=== PATIENT | female | born 1990 | race Caucasian/White ===

== ENCOUNTER 2016-09-29 09:09 | Emergency (ER) | payer OTHER ==
[~2016-09-29] VITALS: Ht 172.7 cm; Wt 136.4 kg
[~2016-09-29 09:09] MED LIST: AMOXICILLIN 50500 MG PO; AMOXICILLIN875 MG PO; BIRTH CONTROL; IMURAN 50MG TAB50 MG PO; IMURAN50 MG PO; LEVAQUIN 5500 MG/TA1 PO; LEVBID0.375 MG PO; LO/OVRAL-21 301 TAB PO; NORCO 325 MG-51 TAB PO; PENTASA; PEPCID 20MG TAB20 MG PO; PHENERGAN 25 TA25 MG PO; PHENERGAN W/CO120 ML PO; PHENERGAN25 MG RC; PREDNISONE 5MG5 MG PO; PRILOSEC 20MG20 MG PO; REMICADE V100 MG/VIA IV; TESSALON PERLE200 MG PO; ULTRAM 50MG TAB50 MG PO; ULTRAM50 MG PO; ZOFRAN 4MG T4 MG/TAB PO
[2016-09-29 09:16] VITALS: BP 143/107; TEMP 98
[2016-09-29 12:41] LABS: PH 5 (5-8); SQUAMOUS EPITHELIAL 0-2 /hpf; URINE APPEARANCE Clear; URINE BACTERIA Rare /hpf; URINE BILIRUBIN Negative (NEGATIVE); URINE BLOOD Negative (NEGATIVE); URINE COLOR Yellow; URINE GLUCOSE Negative (NEGATIVE); URINE KETONE Negative (NEGATIVE); URINE RBC 0-2 /hpf; URINE UROBILINOGEN Negative (NEGATIVE); URINE WBC 0-2 /hpf
[2016-09-29] MEDS ORDERED: VALIUM 5MG T5 MG/TAB PO (13:34)
[2016-09-29] MEDS ORDERED: PERCOCET 325 MG1 TA2 PO (13:34)
[2016-09-29 13:45] VITALS: PULSE 101
== END 2016-09-29 13:45 | disposition home or self-care (01) ==
LOC: COL.ER 09:09
PROVIDERS: Nurse Practitioner
DX: M54.5 Low back pain (principal)
CPT/HCPCS: J1170; J1885; J2270; J2360

== ENCOUNTER 2016-10-04 06:27 | Day surgery (SDC) | payer OTHER ==
[~2016-10-04] VITALS: Ht 172.7 cm; Wt 169.5 kg
[~2016-10-04 06:27] MED LIST changes: +PERCOCET 325 MG1 TA2 PO; +VALIUM 5MG T5 MG/TAB PO
[2016-10-04 07:07] VITALS: BP 149/98; PULSE 93; TEMP 99.3
[2016-10-04] MEDS ORDERED: PRILOSEC 20MG20 MG PO (07:35)
[2016-10-04 08:55] VITALS: BP 141/86; PULSE 85; TEMP 98.2
[2016-10-04 09:10] VITALS: BP 142/98; PULSE 88
[2016-10-04 09:25] VITALS: BP 131/88; PULSE 78
[2016-10-04 12:28] VITALS: BP 145/96; PULSE 89
== END 2016-10-04 10:00 | disposition home or self-care (01) ==
LOC: SDCO 06:27
DX: K50.10 Crohn's disease of large intestine without complications (principal); K64.0 First degree hemorrhoids; K52.9 Noninfective gastroenteritis and colitis, unspecified; K29.50 Unspecified chronic gastritis without bleeding; R11.2 Nausea with vomiting, unspecified; Z79.899 Other long term (current) drug therapy
CPT/HCPCS: OP; J2250; J2704; J7030

== ENCOUNTER → 2016-10-08 | Outpatient (CLI) | payer OTHER ==
[~2016-10-08] MED LIST changes: +CYMBALTA 30MG30 MG PO
== END ==
LOC: COL.RAD 06:16
DX: K50.90 Crohn's disease, unspecified, without complications (principal)
CPT/HCPCS: Q9967

== ENCOUNTER 2016-10-18 10:00 | Outpatient (CLI) | payer OTHER ==
[~2016-10-18] VITALS: Ht 172.7 cm; Wt 166.9 kg
[~2016-10-18 10:00] MED LIST changes: -CYMBALTA 30MG30 MG PO
[2016-10-18 10:16] LABS: BASO % 0.6 % (0.0-2.0); EOS # 0.1 (0.0-0.7); GRAN # 3.4 (1.4-6.5); GRAN % 68.1 % (42.2-75.2); HEMOGLOBIN 13.5 g/dl (12.5-16.0); LYMPH # 1.2 (1.2-3.4); LYMPH % 24.7 % (20.0-51.0); MEAN CELL VOLUME 86 fl (80.0-100.0); MEAN CORPUSCULAR HEMOGLOBIN 29 pg (27.0-31.0); MEAN CORPUSCULAR HGB CONC 34 g/dl (33.0-37.0); MEAN PLATELET VOLUME 9.2 fl (7.4-10.4); MONO # 0.3 (0.1-0.6); MONO % 5.4 % (1.7-9.3); PLATELET COUNT 274 K/mm3 (130-400); RED BLOOD COUNT 4.63 M/mm3 (4.10-5.30); REDCELL DISTRIBUTION WIDTH-CV 13.1 % (11.5-14.5)
[2016-10-18 11:05] VITALS: BP 130/84; PULSE 85; TEMP 98.1
[2016-10-18 11:35] VITALS: BP 117/76; PULSE 87; TEMP 98.1
[2016-10-18 12:05] VITALS: BP 124/78; PULSE 79; TEMP 98.5
[2016-10-18 12:35] VITALS: BP 111/73; PULSE 92; TEMP 98.6
[2016-10-18 13:05] VITALS: BP 111/73; PULSE 90; TEMP 98.6
== END 2016-10-18 13:20 | disposition home or self-care (01) ==
LOC: EUO 10:00
PROVIDERS: Internal Medicine Gastroenterology
DX: K50.00 Crohn's disease of small intestine without complications (principal)
CPT/HCPCS: J1200; J1745; J7050

== ENCOUNTER → 2016-11-29 | Outpatient (CLI) | payer OTHER ==
[~2016-11-29] MED LIST changes: +CYMBALTA 30MG30 MG PO
== END ==
LOC: COL.LAB 14:20
DX: K50.90 Crohn's disease, unspecified, without complications (principal); M79.671 Pain in right foot

== ENCOUNTER 2016-12-13 10:10 | Outpatient (CLI) | payer OTHER ==
[~2016-12-13] VITALS: Ht 172.7 cm; Wt 167.7 kg
[~2016-12-13 10:10] MED LIST changes: -CYMBALTA 30MG30 MG PO
[2016-12-13 10:31] VITALS: BP 134/75; PULSE 97; TEMP 98.3
[2016-12-13 10:58] LABS: HEMATOCRIT 36.2 % (37.0-47.0); HEMOGLOBIN 12.1 g/dl (12.5-16.0); MEAN CELL VOLUME 85 fl (80.0-100.0); MEAN CORPUSCULAR HEMOGLOBIN 29 pg (27.0-31.0); MEAN CORPUSCULAR HGB CONC 33 g/dl (33.0-37.0); MEAN PLATELET VOLUME 10.7 fl (7.4-10.4); PLATELET COUNT 87 K/mm3 (130-400); RED BLOOD COUNT 4.25 M/mm3 (4.10-5.30); REDCELL DISTRIBUTION WIDTH-CV 12.4 % (11.5-14.5); WHITE BLOOD COUNT 5.1 K/mm3 (4.8-10.8)
[2016-12-13 12:15] VITALS: BP 109/67; PULSE 85; TEMP 98.6
[2016-12-13 12:45] VITALS: BP 112/67; PULSE 82; TEMP 98.4
[2016-12-13 13:15] VITALS: BP 104/72; PULSE 87; TEMP 99
[2016-12-13 13:52] VITALS: BP 110/72; PULSE 85; TEMP 97.9
[2016-12-13 14:15] VITALS: BP 106/75; PULSE 89; TEMP 98.2
== END 2016-12-13 14:30 | disposition home or self-care (01) ==
LOC: EUO 10:10
PROVIDERS: Internal Medicine Gastroenterology
DX: K50.00 Crohn's disease of small intestine without complications (principal)
CPT/HCPCS: J1200; J1745; J7050

== ENCOUNTER → 2017-01-13 | Outpatient (CLI) | payer OTHER ==
[~2017-01-13] MED LIST changes: +CYMBALTA 30MG30 MG PO
[2017-01-13 12:39] LABS: ALBUMIN 3.9 gm/dL (3.5-5.0); BILIRUBIN,TOTAL 0.9 mg/dL (0.0-1.0); C-REACTIVE PROTEIN 2.2 mg/dL (0.0-0.9); CALCIUM 8.9 mg/dL (8.4-10.2); CREATININE, serum 0.7 mg/dL (0.52-1.25); POTASSIUM 3.8 mmol/L (3.4-5.0); TOTAL PROTEIN 7.8 gm/dL (6.4-8.2)
[2017-01-13 12:45] LABS: BASO % 0.6 % (0.0-2.0); EOS # 0.1 (0.0-0.7); EOS % 0.9 % (0-4.0); GRAN # 3.2 (1.4-6.5); GRAN % 58.1 % (42.2-75.2); HEMATOCRIT 39.7 % (37.0-47.0); LYMPH # 1.9 (1.2-3.4); LYMPH % 35.4 % (20.0-51.0); MEAN CELL VOLUME 86 fl (80.0-100.0); MEAN CORPUSCULAR HEMOGLOBIN 28 pg (27.0-31.0); MEAN CORPUSCULAR HGB CONC 33 g/dl (33.0-37.0); MEAN PLATELET VOLUME 9.4 fl (7.4-10.4); MONO # 0.3 (0.1-0.6); MONO % 4.8 % (1.7-9.3); PLATELET COUNT 228 K/mm3 (130-400); WHITE BLOOD COUNT 5.4 K/mm3 (4.8-10.8)
[2017-01-13 13:06] LABS: THYROID STIMULATING HORMONE 2.25 uIU/mL (0.465-4.680)
[2017-01-13 13:18] LABS: ERYTHROCYTE SEDIMENTATION RATE 24 mm/hr (0-20)
== END ==
LOC: COL.LAB 11:55
PROVIDERS: Physician Assistant Medical
DX: M25.50 Pain in unspecified joint (principal)

== ENCOUNTER → 2017-01-24 | Outpatient (CLI) | payer OTHER | LOC: COL.LAB 15:05 | PROVIDERS: Internal Medicine Gastroenterology | DX: K50.00 Crohn's disease of small intestine without complications (principal) ==

== ENCOUNTER → 2017-02-07 | Outpatient (CLI) | payer OTHER ==
[~2017-02-07] VITALS: Ht 172.7 cm; Wt 170.4 kg
[2017-02-07 14:43] LABS: HEMOGLOBIN 12.2 g/dl (12.5-16.0); MEAN CELL VOLUME 84 fl (80.0-100.0); MEAN CORPUSCULAR HEMOGLOBIN 28 pg (27.0-31.0); MEAN CORPUSCULAR HGB CONC 33 g/dl (33.0-37.0); MEAN PLATELET VOLUME 9.3 fl (7.4-10.4); PLATELET COUNT 299 K/mm3 (130-400); REDCELL DISTRIBUTION WIDTH-CV 12.8 % (11.5-14.5); WHITE BLOOD COUNT 5.3 K/mm3 (4.8-10.8)
[2017-02-07 14:44] LABS: HEMATOCRIT 36.8 % (37.0-47.0)
[2017-02-07 14:52] LABS: ALBUMIN 3.7 gm/dL (3.5-5.0); TOTAL PROTEIN 7.5 gm/dL (6.4-8.2)
[2017-02-07 15:24] LABS: BILIRUBIN,DIRECT 0.6 mg/dL (0.0-0.4); BILIRUBIN,TOTAL 0.6 mg/dL (0.0-1.0)
[2017-02-07 15:33] VITALS: BP 140/85; PULSE 95; TEMP 98.1
[2017-02-07 16:00] VITALS: BP 138/71; PULSE 93; TEMP 98.1
[2017-02-07 16:30] VITALS: BP 137/75; PULSE 90; TEMP 98.3
[2017-02-07 17:00] VITALS: BP 137/70; PULSE 90; TEMP 98.3
[2017-02-07 17:30] VITALS: BP 127/89; PULSE 85; TEMP 98.3
== END ==
LOC: EUO 14:00
PROVIDERS: Internal Medicine Gastroenterology
DX: K50.00 Crohn's disease of small intestine without complications (principal)
CPT/HCPCS: J1200; J1745; J7050

== ENCOUNTER 2017-04-12 15:00 | Outpatient (CLI) | payer OTHER ==
[~2017-04-12] VITALS: Wt 171.1 kg
[~2017-04-12 15:00] MED LIST changes: -CYMBALTA 30MG30 MG PO
[2017-04-12 15:36] LABS: BASO % 0.6 % (0.0-2.0); EOS # 0.1 (0.0-0.7); EOS % 2.1 % (0-4.0); GRAN # 3.7 (1.4-6.5); GRAN % 56.8 % (42.2-75.2); HEMATOCRIT 38.2 % (37.0-47.0); HEMOGLOBIN 12.6 g/dl (12.5-16.0); LYMPH # 2.2 (1.2-3.4); LYMPH % 33.4 % (20.0-51.0); MEAN CELL VOLUME 83 fl (80.0-100.0); MEAN CORPUSCULAR HEMOGLOBIN 27 pg (27.0-31.0); MEAN CORPUSCULAR HGB CONC 33 g/dl (33.0-37.0); MEAN PLATELET VOLUME 9.3 fl (7.4-10.4); MONO # 0.5 (0.1-0.6); MONO % 6.9 % (1.7-9.3); PLATELET COUNT 289 K/mm3 (130-400); REDCELL DISTRIBUTION WIDTH-CV 13.2 % (11.5-14.5); WHITE BLOOD COUNT 6.6 K/mm3 (4.8-10.8)
[2017-04-12 15:51] LABS: ALBUMIN 3.6 gm/dL (3.5-5.0); BILIRUBIN,DIRECT 0.3 mg/dL (0.0-0.4); BILIRUBIN,TOTAL 0.5 mg/dL (0.0-1.0); TOTAL PROTEIN 7.3 gm/dL (6.4-8.2)
[2017-04-12] MEDS ORDERED: CYMBALTA 30MG30 MG PO (16:04)
[2017-04-12 16:20] VITALS: BP 138/86; PULSE 94; TEMP 97.9
[2017-04-12 16:50] VITALS: BP 125/73; PULSE 78; TEMP 98
[2017-04-12 17:20] VITALS: BP 124/63; PULSE 75; TEMP 98
[2017-04-12 17:50] VITALS: BP 124/67; PULSE 83; TEMP 98
[2017-04-12 18:18] VITALS: BP 118/69; PULSE 86; TEMP 98.2
== END 2017-04-15 09:23 | disposition home or self-care (01) ==
LOC: EUO 15:00
PROVIDERS: Internal Medicine Gastroenterology
DX: K50.00 Crohn's disease of small intestine without complications (principal); Z79.899 Other long term (current) drug therapy
CPT/HCPCS: J1200; J1745; J7050; Q5102-ZB

== ENCOUNTER 2017-06-06 14:30 | Outpatient (CLI) | payer OTHER ==
[~2017-06-06] VITALS: Ht 172.7 cm; Wt 171.0 kg
[~2017-06-06 14:30] MED LIST changes: +CYMBALTA 30MG30 MG PO
[2017-06-06 14:59] LABS: HEMATOCRIT 39.5 % (37.0-47.0); HEMOGLOBIN 13.2 g/dl (12.5-16.0); MEAN CELL VOLUME 83 fl (80.0-100.0); MEAN CORPUSCULAR HEMOGLOBIN 28 pg (27.0-31.0); MEAN CORPUSCULAR HGB CONC 33 g/dl (33.0-37.0); MEAN PLATELET VOLUME 9.4 fl (7.4-10.4); PLATELET COUNT 299 K/mm3 (130-400); RED BLOOD COUNT 4.78 M/mm3 (4.10-5.30); REDCELL DISTRIBUTION WIDTH-CV 13.2 % (11.5-14.5); WHITE BLOOD COUNT 7.4 K/mm3 (4.8-10.8)
[2017-06-06 15:10] LABS: ALBUMIN 3.9 gm/dL (3.5-5.0); BILIRUBIN,TOTAL 0.4 mg/dL (0.0-1.0); TOTAL PROTEIN 7.6 gm/dL (6.4-8.2)
[2017-06-06 15:18] LABS: BILIRUBIN,DIRECT 0.3 mg/dL (0.0-0.4)
[2017-06-06 15:45] VITALS: BP 128/73; PULSE 95; TEMP 98.3
[2017-06-06 16:15] VITALS: BP 137/84; PULSE 100; TEMP 98.3
[2017-06-06 16:45] VITALS: BP 124/70; PULSE 88; TEMP 97.9
[2017-06-06 17:15] VITALS: BP 130/69; PULSE 98; TEMP 98.6
[2017-06-06 17:58] VITALS: BP 138/65; PULSE 96; TEMP 98
== END 2017-06-06 18:00 | disposition home or self-care (01) ==
LOC: EUO 14:30
PROVIDERS: Internal Medicine Gastroenterology
DX: K50.90 Crohn's disease, unspecified, without complications (principal); Z79.899 Other long term (current) drug therapy
CPT/HCPCS: J1200; J7050; Q5102-ZB

== ENCOUNTER 2017-08-01 13:12 | Outpatient (CLI) | payer OTHER ==
[~2017-08-01] VITALS: Ht 172.7 cm; Wt 178.9 kg
[2017-08-01 13:47] LABS: HEMATOCRIT 42.9 % (37.0-47.0); HEMOGLOBIN 14.1 g/dl (12.5-16.0); MEAN CELL VOLUME 84 fl (80.0-100.0); MEAN CORPUSCULAR HEMOGLOBIN 28 pg (27.0-31.0); MEAN CORPUSCULAR HGB CONC 33 g/dl (33.0-37.0); MEAN PLATELET VOLUME 9.2 fl (7.4-10.4); PLATELET COUNT 308 K/mm3 (130-400); RED BLOOD COUNT 5.11 M/mm3 (4.10-5.30); WHITE BLOOD COUNT 7.5 K/mm3 (4.8-10.8)
[2017-08-01 14:45] VITALS: BP 153/93; PULSE 100; TEMP 99
[2017-08-01 15:15] VITALS: BP 149/84; PULSE 96
[2017-08-01 15:45] VITALS: BP 152/86; PULSE 92; TEMP 98.5
[2017-08-01 16:21] VITALS: BP 132/87; PULSE 95; TEMP 98.4
[2017-08-01 16:51] VITALS: BP 142/79; PULSE 93; TEMP 98.4
== END 2017-08-01 16:52 | disposition home or self-care (01) ==
LOC: EUO 13:12
PROVIDERS: Internal Medicine Gastroenterology
DX: K50.00 Crohn's disease of small intestine without complications (principal); Z79.899 Other long term (current) drug therapy
CPT/HCPCS: J1200; J7050; Q5102-ZB

== ENCOUNTER 2017-09-27 14:20 | Outpatient (CLI) | payer OTHER ==
[~2017-09-27] VITALS: Ht 172.7 cm; Wt 181.0 kg
[2017-09-27 14:47] LABS: HEMATOCRIT 40.8 % (37.0-47.0); HEMOGLOBIN 13.6 g/dl (12.5-16.0); MEAN CELL VOLUME 83 fl (80.0-100.0); MEAN CORPUSCULAR HEMOGLOBIN 28 pg (27.0-31.0); MEAN CORPUSCULAR HGB CONC 33 g/dl (33.0-37.0); MEAN PLATELET VOLUME 9.1 fl (7.4-10.4); PLATELET COUNT 337 K/mm3 (130-400); RED BLOOD COUNT 4.89 M/mm3 (4.10-5.30)
[2017-09-27 15:04] LABS: BILIRUBIN UNCONJUGATED 0.1 mg/dL (0.0-1.1); BILIRUBIN,DIRECT 0.2 mg/dL (0.0-0.4); BILIRUBIN,TOTAL 0.2 mg/dL (0.0-1.0); TOTAL PROTEIN 7.9 gm/dL (6.4-8.2)
[2017-09-27 16:00] VITALS: BP 138/97; PULSE 94; TEMP 98.2
[2017-09-27 16:30] VITALS: BP 122/81; PULSE 91; TEMP 98.1
[2017-09-27 17:10] VITALS: BP 137/86; PULSE 88; TEMP 98.3
[2017-09-27 17:46] VITALS: BP 119/60; PULSE 88; TEMP 98.4
== END 2017-09-28 14:07 | disposition home or self-care (01) ==
LOC: EUO 14:20
PROVIDERS: Internal Medicine Gastroenterology
DX: K50.00 Crohn's disease of small intestine without complications (principal); Z79.899 Other long term (current) drug therapy
CPT/HCPCS: J1200; J7050; Q5102-ZB

== ENCOUNTER 2018-01-10 09:44 | Outpatient (CLI) | payer OTHER ==
[~2018-01-10] VITALS: Ht 172.7 cm; Wt 181.0 kg
[2018-01-10 10:24] LABS: HEMATOCRIT 41.7 % (37.0-47.0); HEMOGLOBIN 13.9 g/dl (12.5-16.0); MEAN CELL VOLUME 82 fl (80.0-100.0); MEAN CORPUSCULAR HEMOGLOBIN 27 pg (27.0-31.0); MEAN CORPUSCULAR HGB CONC 33 g/dl (33.0-37.0); MEAN PLATELET VOLUME 9.2 fl (7.4-10.4); PLATELET COUNT 326 K/mm3 (130-400); RED BLOOD COUNT 5.08 M/mm3 (4.10-5.30); REDCELL DISTRIBUTION WIDTH-CV 13.1 % (11.5-14.5)
[2018-01-10 12:05] VITALS: BP 133/80; PULSE 91; TEMP 98.2
[2018-01-10 12:35] VITALS: BP 137/99; PULSE 92; TEMP 99
[2018-01-10 13:05] VITALS: BP 131/85; PULSE 96; TEMP 98.7
[2018-01-10 13:35] VITALS: BP 136/97; PULSE 89; TEMP 98.4
[2018-01-10 14:08] VITALS: BP 132/86; PULSE 87; TEMP 98.4
== END 2018-01-10 16:05 | disposition home or self-care (01) ==
LOC: EUO 09:44
PROVIDERS: Internal Medicine Gastroenterology
DX: K50.00 Crohn's disease of small intestine without complications (principal); Z79.899 Other long term (current) drug therapy
CPT/HCPCS: J1200; J7050; Q5103

== ENCOUNTER → 2018-03-07 | Outpatient (CLI) | payer OTHER | LOC: EUO 11:00 | DX: K50.00 Crohn's disease of small intestine without complications (principal); Z79.899 Other long term (current) drug therapy | CPT/HCPCS: Q5103 ==

== ENCOUNTER 2018-05-09 13:09 | Outpatient (CLI) | payer OTHER ==
[2018-05-09 13:31] LABS: HEMATOCRIT 39.9 % (37.0-47.0); HEMOGLOBIN 12.9 g/dl (12.5-16.0); MEAN CELL VOLUME 81 fl (80.0-100.0); MEAN CORPUSCULAR HEMOGLOBIN 26 pg (27.0-31.0); MEAN CORPUSCULAR HGB CONC 32 g/dl (33.0-37.0); MEAN PLATELET VOLUME 9.4 fl (7.4-10.4); PLATELET COUNT 357 K/mm3 (130-400); RED BLOOD COUNT 4.92 M/mm3 (4.10-5.30); REDCELL DISTRIBUTION WIDTH-CV 13.4 % (11.5-14.5)
[2018-05-09 13:47] LABS: ALBUMIN 3.6 gm/dL (3.5-5.0); BILIRUBIN UNCONJUGATED 0.4 mg/dL (0.0-1.1); BILIRUBIN,DIRECT 0.2 mg/dL (0.0-0.4); BILIRUBIN,TOTAL 0.6 mg/dL (0.0-1.0); TOTAL PROTEIN 7.6 gm/dL (6.4-8.2)
[2018-05-09 14:21] VITALS: BP 128/78; PULSE 108; TEMP 97.5
[2018-05-09 15:00] VITALS: BP 131/79; PULSE 102
[2018-05-09 15:30] VITALS: BP 129/92; PULSE 104; TEMP 98.7
[2018-05-09 16:00] VITALS: BP 122/81; PULSE 104
[2018-05-09 16:30] VITALS: BP 116/78; PULSE 98
[2018-05-09 17:00] VITALS: BP 130/83; PULSE 101; TEMP 98.3
== END 2018-05-09 17:14 | disposition home or self-care (01) ==
LOC: EUO 13:09
PROVIDERS: Internal Medicine Gastroenterology
DX: K50.00 Crohn's disease of small intestine without complications (principal); Z79.899 Other long term (current) drug therapy
CPT/HCPCS: J1200; J7050; Q5103

== ENCOUNTER 2018-07-04 12:49 | Outpatient (CLI) | payer OTHER ==
[2018-07-04] VITALS (7 sets, daily range): BP systolic 116–144; BP diastolic 70–92; PULSE 87–98; TEMP 97.7–98.3
[~2018-07-04] VITALS: Ht 172.7 cm; Wt 178.4 kg
[2018-07-04 13:26] LABS: HEMATOCRIT 40.4 % (37.0-47.0); MEAN CELL VOLUME 81 fl (80.0-100.0); MEAN CORPUSCULAR HEMOGLOBIN 26 pg (27.0-31.0); MEAN CORPUSCULAR HGB CONC 32 g/dl (33.0-37.0); MEAN PLATELET VOLUME 9.5 fl (7.4-10.4); PLATELET COUNT 346 K/mm3 (130-400); REDCELL DISTRIBUTION WIDTH-CV 13.8 % (11.5-14.5)
[2018-07-04 13:39] LABS: ALBUMIN 3.7 gm/dL (3.5-5.0); BILIRUBIN UNCONJUGATED 0.3 mg/dL (0.0-1.1); BILIRUBIN,DIRECT 0.2 mg/dL (0.0-0.4); BILIRUBIN,TOTAL 0.4 mg/dL (0.0-1.0); TOTAL PROTEIN 7.6 gm/dL (6.4-8.2)
== END 2018-07-04 16:32 | disposition home or self-care (01) ==
LOC: EUO 12:49
PROVIDERS: Internal Medicine Gastroenterology
DX: K50.00 Crohn's disease of small intestine without complications (principal); Z79.899 Other long term (current) drug therapy
CPT/HCPCS: J1200; J7050; Q5103

== ENCOUNTER → 2018-08-02 | Outpatient (CLI) | payer OTHER ==
[2018-08-02 14:11] LABS: BASO # 0.1 (0.0-0.2); BASO % 0.7 % (0.0-2.0); EOS # 0.2 (0.0-0.7); GRAN # 5.8 (1.4-6.5); GRAN % 64.9 % (42.2-75.2); HEMATOCRIT 42.4 % (37.0-47.0); HEMOGLOBIN 13.5 g/dl (12.5-16.0); LYMPH # 2.4 (1.2-3.4); LYMPH % 26.5 % (20.0-51.0); MEAN CELL VOLUME 82 fl (80.0-100.0); MEAN CORPUSCULAR HEMOGLOBIN 26 pg (27.0-31.0); MEAN CORPUSCULAR HGB CONC 32 g/dl (33.0-37.0); MEAN PLATELET VOLUME 9.3 fl (7.4-10.4); MONO # 0.5 (0.1-0.6); MONO % 5.5 % (1.7-9.3); PLATELET COUNT 368 K/mm3 (130-400); RED BLOOD COUNT 5.19 M/mm3 (4.10-5.30); REDCELL DISTRIBUTION WIDTH-CV 13.7 % (11.5-14.5)
[2018-08-02 14:25] LABS: ALBUMIN 3.9 gm/dL (3.5-5.0); BILIRUBIN,TOTAL 0.5 mg/dL (0.0-1.0); C-REACTIVE PROTEIN 2.3 mg/dL (0.0-0.9); CALCIUM 8.6 mg/dL (8.4-10.2); CREATININE, serum 0.71 mg/dL (0.52-1.25); TOTAL PROTEIN 7.9 gm/dL (6.4-8.2)
[2018-08-02 14:33] LABS: ERYTHROCYTE SEDIMENTATION RATE 29 mm/hr (0-20)
[2018-08-02 14:53] LABS: THYROID STIMULATING HORMONE 2.37 uIU/mL (0.465-4.680)
== END ==
LOC: COL.LAB 13:33
PROVIDERS: Family Medicine
DX: M54.9 Dorsalgia, unspecified (principal); R10.9 Unspecified abdominal pain

== ENCOUNTER 2018-08-29 13:04 | Outpatient (CLI) | payer OTHER ==
[~2018-08-29] VITALS: Ht 172.7 cm; Wt 175.0 kg
[2018-08-29 13:40] LABS: HEMATOCRIT 39.5 % (37.0-47.0); HEMOGLOBIN 12.8 g/dl (12.5-16.0); MEAN CELL VOLUME 82 fl (80.0-100.0); MEAN CORPUSCULAR HEMOGLOBIN 26 pg (27.0-31.0); MEAN CORPUSCULAR HGB CONC 32 g/dl (33.0-37.0); MEAN PLATELET VOLUME 9.3 fl (7.4-10.4); PLATELET COUNT 396 K/mm3 (130-400); RED BLOOD COUNT 4.84 M/mm3 (4.10-5.30)
[2018-08-29 14:55] VITALS: BP 140/86; PULSE 95; TEMP 98.3
[2018-08-29 15:25] VITALS: BP 128/92; PULSE 90; TEMP 98.2
[2018-08-29 15:55] VITALS: BP 135/85; PULSE 93; TEMP 98.5
[2018-08-29 16:25] VITALS: BP 128/95; PULSE 90; TEMP 98.7
[2018-08-29 17:04] VITALS: BP 135/84; PULSE 97; TEMP 98.3
== END 2018-08-29 17:04 | disposition home or self-care (01) ==
LOC: EUO 13:04
PROVIDERS: Internal Medicine Gastroenterology
DX: K50.00 Crohn's disease of small intestine without complications (principal); Z79.899 Other long term (current) drug therapy
CPT/HCPCS: J1200; J7050; Q5103

== ENCOUNTER 2018-10-24 13:12 | Outpatient (CLI) | payer OTHER ==
[2018-10-24 13:56] LABS: HEMATOCRIT 38.5 % (37.0-47.0); HEMOGLOBIN 12.6 g/dl (12.5-16.0); MEAN CELL VOLUME 84 fl (80.0-100.0); MEAN CORPUSCULAR HEMOGLOBIN 27 pg (27.0-31.0); MEAN CORPUSCULAR HGB CONC 33 g/dl (33.0-37.0); MEAN PLATELET VOLUME 9.2 fl (7.4-10.4); PLATELET COUNT 358 K/mm3 (130-400); RED BLOOD COUNT 4.61 M/mm3 (4.10-5.30); REDCELL DISTRIBUTION WIDTH-CV 14.6 % (11.5-14.5)
[2018-10-24 14:01] LABS: ALBUMIN 3.7 gm/dL (3.5-5.0); BILIRUBIN UNCONJUGATED 0.3 mg/dL (0.0-1.1); BILIRUBIN,DIRECT 0.2 mg/dL (0.0-0.4); BILIRUBIN,TOTAL 0.4 mg/dL (0.0-1.0); TOTAL PROTEIN 7.3 gm/dL (6.4-8.2)
[2018-10-24 14:36] VITALS: BP 135/84; PULSE 98; TEMP 98.4
[2018-10-24 15:00] VITALS: BP 119/87; PULSE 98
[2018-10-24 15:30] VITALS: BP 120/82; PULSE 98
[2018-10-24 16:06] VITALS: BP 126/78; PULSE 94; TEMP 97.6
[2018-10-24 16:40] VITALS: BP 121/73; PULSE 100
== END 2018-10-24 16:40 | disposition home or self-care (01) ==
LOC: EUO 13:12
PROVIDERS: Internal Medicine Gastroenterology
DX: K50.00 Crohn's disease of small intestine without complications (principal); Z79.899 Other long term (current) drug therapy
CPT/HCPCS: J1200; J7050; Q5103

== ENCOUNTER 2018-12-19 13:13 | Outpatient (CLI) | payer OTHER ==
[2018-12-19] VITALS (8 sets, daily range): BP systolic 118–140; BP diastolic 54–87; PULSE 65–107; TEMP 98–98.7
[~2018-12-19] VITALS: Ht 172.7 cm; Wt 177.3 kg
[2018-12-19 13:42] LABS: HEMATOCRIT 41.2 % (37.0-47.0); HEMOGLOBIN 13.6 g/dl (12.5-16.0); MEAN CELL VOLUME 85 fl (80.0-100.0); MEAN CORPUSCULAR HEMOGLOBIN 28 pg (27.0-31.0); MEAN CORPUSCULAR HGB CONC 33 g/dl (33.0-37.0); MEAN PLATELET VOLUME 9.1 fl (7.4-10.4); PLATELET COUNT 400 K/mm3 (130-400); RED BLOOD COUNT 4.87 M/mm3 (4.10-5.30); REDCELL DISTRIBUTION WIDTH-CV 14.3 % (11.5-14.5)
[2018-12-19 13:43] LABS: BILIRUBIN UNCONJUGATED 0.2 mg/dL (0.0-1.1); BILIRUBIN,DIRECT 0.1 mg/dL (0.0-0.4); BILIRUBIN,TOTAL 0.3 mg/dL (0.0-1.0); TOTAL PROTEIN 8.3 gm/dL (6.4-8.2)
== END 2018-12-19 16:50 | disposition home or self-care (01) ==
LOC: EUO 13:13
PROVIDERS: Internal Medicine Gastroenterology
DX: K50.00 Crohn's disease of small intestine without complications (principal); Z79.899 Other long term (current) drug therapy
CPT/HCPCS: J1200; J7050; Q5103

== ENCOUNTER 2019-02-13 13:05 | Outpatient (CLI) | payer OTHER ==
[~2019-02-13] VITALS: Ht 172.7 cm; Wt 185.0 kg
[2019-02-13 13:46] LABS: HEMATOCRIT 39.7 % (37.0-47.0); HEMOGLOBIN 12.9 g/dl (12.5-16.0); MEAN CELL VOLUME 89 fl (80.0-100.0); MEAN CORPUSCULAR HEMOGLOBIN 29 pg (27.0-31.0); MEAN CORPUSCULAR HGB CONC 33 g/dl (33.0-37.0); MEAN PLATELET VOLUME 8.9 fl (7.4-10.4); PLATELET COUNT 316 K/mm3 (130-400); RED BLOOD COUNT 4.48 M/mm3 (4.10-5.30); REDCELL DISTRIBUTION WIDTH-CV 14.2 % (11.5-14.5)
[2019-02-13 13:59] LABS: ALANINE AMINOTRANSFERASE < 6 U/L (9-52); ALBUMIN 3.9 gm/dL (3.5-5.0); ALKALINE PHOSPHATASE 78 U/L (50-136); AST,SGOT 21 U/L (15-37); BILIRUBIN UNCONJUGATED 0.2 mg/dL (0.0-1.1); BILIRUBIN,DIRECT 0.1 mg/dL (0.0-0.4); BILIRUBIN,TOTAL 0.3 mg/dL (0.0-1.0); TOTAL PROTEIN 8.1 gm/dL (6.4-8.2)
--- NOTE | 2019-02-13 14:27 | NUR ---
INT discontinued intact. Pt needs to reschedule d/t no med here for her at this time
[2019-02-13 14:28] VITALS: BP 182/79; PULSE 88; TEMP 98
== END 2019-02-13 14:30 | disposition home or self-care (01) ==
LOC: EUO 13:05
PROVIDERS: Internal Medicine Gastroenterology
DX: K50.00 Crohn's disease of small intestine without complications (principal); Z79.899 Other long term (current) drug therapy
CPT/HCPCS: J1200; Q5103

== ENCOUNTER 2019-02-21 14:13 | Outpatient (CLI) | payer OTHER ==
[~2019-02-21] VITALS: Ht 172.7 cm; Wt 184.0 kg
[2019-02-21 15:06] VITALS: BP 126/78; PULSE 86; TEMP 97.9
[2019-02-21 15:50] VITALS: BP 124/88; PULSE 99; TEMP 97.5
[2019-02-21 16:20] VITALS: BP 129/81; PULSE 90; TEMP 98.9
[2019-02-21 16:50] VITALS: BP 132/76; PULSE 92; TEMP 97.6
[2019-02-21 17:20] VITALS: BP 132/73; PULSE 97; TEMP 99
== END 2019-02-21 17:31 | disposition home or self-care (01) ==
LOC: EUO 14:13
DX: K50.00 Crohn's disease of small intestine without complications (principal); Z79.899 Other long term (current) drug therapy
CPT/HCPCS: J1200; J7050; Q5103

== ENCOUNTER 2019-04-18 13:53 | Outpatient (CLI) | payer OTHER ==
[~2019-04-18] VITALS: Ht 172.7 cm; Wt 190.8 kg
[2019-04-18 14:42] LABS: HEMOGLOBIN 12.1 g/dl (12.5-16.0); MEAN CELL VOLUME 86 fl (80.0-100.0); MEAN CORPUSCULAR HEMOGLOBIN 29 pg (27.0-31.0); MEAN CORPUSCULAR HGB CONC 33 g/dl (33.0-37.0); MEAN PLATELET VOLUME 9.1 fl (7.4-10.4); PLATELET COUNT 310 K/mm3 (130-400); RED BLOOD COUNT 4.24 M/mm3 (4.10-5.30); REDCELL DISTRIBUTION WIDTH-CV 13.2 % (11.5-14.5)
[2019-04-18 14:43] LABS: HEMATOCRIT 36.5 % (37.0-47.0)
[2019-04-18 16:42] VITALS: BP 125/85; PULSE 90; TEMP 98
[2019-04-18 17:12] VITALS: BP 110/73; PULSE 91
[2019-04-18 17:42] VITALS: BP 111/72; PULSE 91; TEMP 98.3
[2019-04-18 18:40] VITALS: BP 120/72; PULSE 87; TEMP 97.7
== END 2019-04-18 18:47 | disposition home or self-care (01) ==
LOC: EUO 13:53
PROVIDERS: Internal Medicine Gastroenterology
DX: K50.00 Crohn's disease of small intestine without complications (principal); Z79.899 Other long term (current) drug therapy
CPT/HCPCS: J1200; J7050; Q5103

== ENCOUNTER 2019-06-12 07:41 | Day surgery (SDC) | payer OTHER ==
[~2019-06-12] VITALS: Ht 172.7 cm; Wt 191.7 kg
[2019-06-12 08:16] VITALS: BP 136/96; PULSE 102; TEMP 97.5
[2019-06-12] MEDS ORDERED: CYMBALTA 60MG60 MG PO (08:28)
--- NOTE | 2019-06-12 08:30 | NUR ---
TO RM AT 0740- CALL LIGHT IN REACH BROTHER AT BEDSIDE.
[2019-06-12 09:35] VITALS: BP 140/100; PULSE 84; TEMP 97
--- NOTE | 2019-06-12 09:35 | NUR ---
TO [facility] PER CART FROM ENDOSCOPY. AMBULATED TO RECLINER WITH ASSIST AND TOLERATED WELL. BROTHER AT BEDSIDE.
[2019-06-12 09:50] VITALS: BP 137/98; PULSE 86
--- NOTE | 2019-06-12 09:50 | NUR ---
MARIA LUISA MA AND
[2019-06-12 10:05] VITALS: BP 138/103; PULSE 86
--- NOTE | 2019-06-12 10:05 | NUR ---
ATE 100% AND TOLERATED WELL. DR VALENTINE INTO TALK WITH PATIENT AND BROTHER.
--- NOTE | 2019-06-12 10:15 | NUR ---
RECEIVED DISCHARGE INSTRUCTIONS AND VERBALIZED UNDERSTANDING. DISCONTINUED IV AND INT- CATHETER INTACT AMBULATED TO BATHROOM AND DRESSED IN BATHROOM.
--- NOTE | 2019-06-12 10:30 | NUR ---
DISCHARGED PER WC BY NURSING STAFF TO PRIVATE CAR IN CARE OF DWIGHT VELOZ.
== END 2019-06-12 10:41 | disposition home or self-care (01) ==
LOC: SDCO 07:41
DX: K50.10 Crohn's disease of large intestine without complications (principal); M79.7 Fibromyalgia; F32.9 Major depressive disorder, single episode, unspecified; K21.9 Gastro-esophageal reflux disease without esophagitis; E66.01 Morbid (severe) obesity due to excess calories; Z68.43 Body mass index [BMI] 50.0-59.9, adult; Z90.49 Acquired absence of other specified parts of digestive tract
CPT/HCPCS: OP; J2250; J2704; J3010; J7120

== ENCOUNTER 2019-06-13 13:50 | Outpatient (CLI) | payer OTHER ==
[~2019-06-13] VITALS: Ht 172.7 cm; Wt 193.0 kg
[~2019-06-13 13:50] MED LIST changes: +CYMBALTA 60MG60 MG PO
[2019-06-13 14:26] LABS: HEMATOCRIT 39.6 % (37.0-47.0); HEMOGLOBIN 13.1 g/dl (12.5-16.0); MEAN CELL VOLUME 87 fl (80.0-100.0); MEAN CORPUSCULAR HEMOGLOBIN 29 pg (27.0-31.0); MEAN CORPUSCULAR HGB CONC 33 g/dl (33.0-37.0); MEAN PLATELET VOLUME 9.1 fl (7.4-10.4); PLATELET COUNT 342 K/mm3 (130-400); RED BLOOD COUNT 4.57 M/mm3 (4.10-5.30); REDCELL DISTRIBUTION WIDTH-CV 13.4 % (11.5-14.5)
[2019-06-13 14:39] LABS: ALBUMIN 3.9 gm/dL (3.5-5.0); BILIRUBIN UNCONJUGATED 0.2 mg/dL (0.0-1.1); BILIRUBIN,TOTAL 0.3 mg/dL (0.0-1.0); TOTAL PROTEIN 7.8 gm/dL (6.4-8.2)
[2019-06-13 15:20] VITALS: BP 148/86; PULSE 104; TEMP 98.9
[2019-06-13 15:50] VITALS: BP 148/95; PULSE 94; TEMP 98.2
[2019-06-13 16:20] VITALS: BP 138/88; PULSE 101; TEMP 98.7
[2019-06-13 16:50] VITALS: BP 145/91; PULSE 104; TEMP 98
--- NOTE | 2019-06-13 17:07 | NUR ---
Report to Ivis Abdalla RN who assumed care at this time.
[2019-06-13 17:40] VITALS: BP 140/91; PULSE 102; TEMP 98.2
== END 2019-06-13 18:18 | disposition home or self-care (01) ==
LOC: EUO 13:50
PROVIDERS: Internal Medicine Gastroenterology
DX: K50.00 Crohn's disease of small intestine without complications (principal); Z79.899 Other long term (current) drug therapy
CPT/HCPCS: J1200; J7050; Q5103

== ENCOUNTER 2019-08-08 14:04 | Outpatient (CLI) | payer OTHER ==
[~2019-08-08] VITALS: Ht 172.7 cm; Wt 193.0 kg
[2019-08-08 14:45] LABS: HEMATOCRIT 38.8 % (37.0-47.0); HEMOGLOBIN 12.9 g/dl (12.5-16.0); MEAN CELL VOLUME 87 fl (80.0-100.0); MEAN CORPUSCULAR HEMOGLOBIN 29 pg (27.0-31.0); MEAN CORPUSCULAR HGB CONC 33 g/dl (33.0-37.0); MEAN PLATELET VOLUME 9.3 fl (7.4-10.4); PLATELET COUNT 307 K/mm3 (130-400); RED BLOOD COUNT 4.45 M/mm3 (4.10-5.30); REDCELL DISTRIBUTION WIDTH-CV 13.5 % (11.5-14.5)
[2019-08-08 15:02] LABS: BILIRUBIN UNCONJUGATED 0.3 mg/dL (0.0-1.1); BILIRUBIN,DIRECT 0.1 mg/dL (0.0-0.4); BILIRUBIN,TOTAL 0.4 mg/dL (0.0-1.0); TOTAL PROTEIN 7.8 gm/dL (6.4-8.2)
[2019-08-08 16:00] VITALS: BP 141/84; PULSE 100; TEMP 97.9
[2019-08-08 16:30] VITALS: BP 139/83; PULSE 95
[2019-08-08 17:00] VITALS: BP 140/86; PULSE 99; TEMP 98
[2019-08-08 17:30] VITALS: BP 142/83; PULSE 98; TEMP 97.7
[2019-08-08 18:00] VITALS: BP 144/85; PULSE 103
== END 2019-08-08 18:19 | disposition home or self-care (01) ==
LOC: EUO 14:04
PROVIDERS: Internal Medicine Gastroenterology
DX: K50.00 Crohn's disease of small intestine without complications (principal); Z79.899 Other long term (current) drug therapy
CPT/HCPCS: J1200; J7050; Q5103

== ENCOUNTER 2019-09-26 11:09 | Emergency (ER) | payer OTHER ==
[~2019-09-26] VITALS: Ht 172.7 cm; Wt 172.7 kg
[~2019-09-26 11:09] MED LIST changes: +INFLECTRA100 MG IV; -REMICADE V100 MG/VIA IV
[2019-09-26 11:42] VITALS: BP 150/106; TEMP 98.1
[2019-09-26 12:14] LABS: COLLECTION METHOD CLEAN CATCH
[2019-09-26 12:24] LABS: MUCOUS Present /lpf; PH 5 (5-8); URINE APPEARANCE Hazy; URINE BACTERIA None Seen /hpf; URINE BILIRUBIN Negative (NEGATIVE); URINE BLOOD 1+ (NEGATIVE); URINE COLOR Amber; URINE GLUCOSE Negative (NEGATIVE); URINE KETONE Trace (NEGATIVE); URINE LEUKOCYTE ESTERASE Negative (NEGATIVE); URINE NITRATE Negative (NEGATIVE); URINE PROTEIN(semi-quant) Negative (NEGATIVE); URINE RBC 0-2 /hpf; URINE UROBILINOGEN Negative (NEGATIVE)
[2019-09-26] MEDS ORDERED: FLEXERIL 1010 MG/TAB PO (14:25)
[2019-09-26 14:35] VITALS: PULSE 98
== END 2019-09-26 14:36 | disposition home or self-care (01) ==
LOC: COL.ER 11:09
PROVIDERS: Emergency Medicine
DX: M54.10 Radiculopathy, site unspecified (principal); M54.5 Low back pain; R31.9 Hematuria, unspecified; K50.90 Crohn's disease, unspecified, without complications; Z87.891 Personal history of nicotine dependence; Z90.89 Acquired absence of other organs
CPT/HCPCS: J1885

== ENCOUNTER 2019-10-04 13:56 | Outpatient (CLI) | payer OTHER ==
[~2019-10-04] VITALS: Ht 172.7 cm; Wt 196.0 kg
[~2019-10-04 13:56] MED LIST changes: +FLEXERIL 1010 MG/TAB PO
[2019-10-04 14:48] LABS: HEMATOCRIT 39.8 % (37.0-47.0); MEAN CELL VOLUME 88 fl (80.0-100.0); MEAN CORPUSCULAR HEMOGLOBIN 29 pg (27.0-31.0); MEAN CORPUSCULAR HGB CONC 33 g/dl (33.0-37.0); MEAN PLATELET VOLUME 9.4 fl (7.4-10.4); PLATELET COUNT 336 K/mm3 (130-400); RED BLOOD COUNT 4.55 M/mm3 (4.10-5.30); REDCELL DISTRIBUTION WIDTH-CV 13.3 % (11.5-14.5)
[2019-10-04 14:59] LABS: ALBUMIN 3.9 gm/dL (3.5-5.0); BILIRUBIN UNCONJUGATED 0.1 mg/dL (0.0-1.1); BILIRUBIN,DIRECT 0.2 mg/dL (0.0-0.4); BILIRUBIN,TOTAL 0.3 mg/dL (0.0-1.0); TOTAL PROTEIN 7.6 gm/dL (6.4-8.2)
[2019-10-04 16:30] VITALS: BP 137/94; PULSE 95; TEMP 98.1
[2019-10-04 16:45] VITALS: BP 130/80; PULSE 99
[2019-10-04 17:00] VITALS: BP 135/82; PULSE 97
[2019-10-04 17:30] VITALS: BP 115/84; PULSE 98; TEMP 98.2
[2019-10-04 18:00] VITALS: BP 110/85; PULSE 97; TEMP 97.8
--- NOTE | 2019-10-04 18:11 | NUR ---
Report to Lucinda Oleary.
[2019-10-04 18:30] VITALS: BP 131/89; PULSE 99; TEMP 97.5
== END 2019-10-04 18:56 | disposition home or self-care (01) ==
LOC: EUO 13:56
PROVIDERS: Internal Medicine Gastroenterology
DX: K50.00 Crohn's disease of small intestine without complications (principal); Z79.899 Other long term (current) drug therapy
CPT/HCPCS: J1200; J7050; Q5103

== ENCOUNTER 2019-11-29 13:58 | Outpatient (CLI) | payer OTHER ==
[2019-11-29] VITALS (7 sets, daily range): BP systolic 118–150; BP diastolic 76–101; PULSE 97–113; TEMP 97.5–98
[~2019-11-29] VITALS: Ht 172.7 cm; Wt 199.5 kg
[2019-11-29 15:18] LABS: HEMATOCRIT 38.9 % (37.0-47.0); HEMOGLOBIN 12.9 g/dl (12.5-16.0); MEAN CELL VOLUME 87 fl (80.0-100.0); MEAN CORPUSCULAR HEMOGLOBIN 29 pg (27.0-31.0); MEAN CORPUSCULAR HGB CONC 33 g/dl (33.0-37.0); MEAN PLATELET VOLUME 9.6 fl (7.4-10.4); PLATELET COUNT 331 K/mm3 (130-400); RED BLOOD COUNT 4.47 M/mm3 (4.10-5.30); REDCELL DISTRIBUTION WIDTH-CV 13.8 % (11.5-14.5)
== END 2019-11-29 19:05 | disposition home or self-care (01) ==
LOC: EUO 13:58
PROVIDERS: Internal Medicine Gastroenterology
DX: K50.00 Crohn's disease of small intestine without complications (principal); Z79.899 Other long term (current) drug therapy
CPT/HCPCS: J1200; J7050; Q5103

== ENCOUNTER 2020-03-20 13:54 | Outpatient (CLI) | payer OTHER ==
[~2020-03-20] VITALS: Ht 172.7 cm; Wt 198.0 kg
[2020-03-20 14:37] LABS: HEMATOCRIT 42.1 % (37.0-47.0); HEMOGLOBIN 13.9 g/dl (12.5-16.0); MEAN CELL VOLUME 87 fl (80.0-100.0); MEAN CORPUSCULAR HEMOGLOBIN 29 pg (27.0-31.0); MEAN CORPUSCULAR HGB CONC 33 g/dl (33.0-37.0); MEAN PLATELET VOLUME 9.1 fl (7.4-10.4); PLATELET COUNT 345 K/mm3 (130-400); RED BLOOD COUNT 4.86 M/mm3 (4.10-5.30); REDCELL DISTRIBUTION WIDTH-CV 13.8 % (11.5-14.5)
[2020-03-20 15:30] VITALS: BP 138/90; PULSE 112; TEMP 98.6
[2020-03-20 16:00] VITALS: BP 148/93; PULSE 107; TEMP 98.4
[2020-03-20 16:30] VITALS: BP 150/90; PULSE 101; TEMP 98
[2020-03-20 17:00] VITALS: BP 165/90; PULSE 103; TEMP 98.5
[2020-03-20 17:30] VITALS: BP 140/90; PULSE 100; TEMP 98.2
== END 2020-03-20 17:45 | disposition home or self-care (01) ==
LOC: EUO 13:54
PROVIDERS: Internal Medicine Gastroenterology
DX: K50.00 Crohn's disease of small intestine without complications (principal); Z79.899 Other long term (current) drug therapy
CPT/HCPCS: J1200; J7050; Q5103

== ENCOUNTER 2020-05-15 13:57 | Outpatient (CLI) | payer OTHER ==
[~2020-05-15] VITALS: Ht 172.7 cm; Wt 204.1 kg
[2020-05-15 14:18] LABS: HEMATOCRIT 39.1 % (37.0-47.0); HEMOGLOBIN 13.1 g/dl (12.5-16.0); MEAN CELL VOLUME 88 fl (80.0-100.0); MEAN CORPUSCULAR HEMOGLOBIN 29 pg (27.0-31.0); MEAN CORPUSCULAR HGB CONC 34 g/dl (33.0-37.0); PLATELET COUNT 332 K/mm3 (130-400); RED BLOOD COUNT 4.46 M/mm3 (4.10-5.30); REDCELL DISTRIBUTION WIDTH-CV 14.5 % (11.5-14.5)
[2020-05-15 16:00] VITALS: BP 160/105; PULSE 102; TEMP 98.3
[2020-05-15 16:15] VITALS: BP 147/94; PULSE 103
[2020-05-15 16:45] VITALS: BP 149/97; PULSE 101
[2020-05-15 17:15] VITALS: BP 155/96; PULSE 101
[2020-05-15 18:00] VITALS: BP 131/75; PULSE 94
== END 2020-05-15 19:26 | disposition home or self-care (01) ==
LOC: EUO 13:57
PROVIDERS: Internal Medicine Gastroenterology
DX: K50.00 Crohn's disease of small intestine without complications (principal); Z79.899 Other long term (current) drug therapy
CPT/HCPCS: J1200; J7050; Q5103

== ENCOUNTER 2020-07-10 12:44 | Outpatient (CLI) | payer OTHER ==
[2020-07-10 13:25] VITALS: BP 138/95; PULSE 98; TEMP 98.3
[2020-07-10 13:25] LABS: HEMATOCRIT 38.7 % (37.0-47.0); HEMOGLOBIN 12.8 g/dl (12.5-16.0); MEAN CELL VOLUME 88 fl (80.0-100.0); MEAN CORPUSCULAR HEMOGLOBIN 29 pg (27.0-31.0); MEAN CORPUSCULAR HGB CONC 33 g/dl (33.0-37.0); MEAN PLATELET VOLUME 8.9 fl (7.4-10.4); PLATELET COUNT 373 K/mm3 (130-400); RED BLOOD COUNT 4.41 M/mm3 (4.10-5.30)
[2020-07-10 13:42] LABS: BILIRUBIN UNCONJUGATED 0.4 mg/dL (0.0-1.1); BILIRUBIN,TOTAL 0.4 mg/dL (0.0-1.0); TOTAL PROTEIN 7.9 gm/dL (6.4-8.2)
[2020-07-10 14:20] VITALS: BP 133/91; PULSE 97; TEMP 98.8
[2020-07-10 14:50] VITALS: BP 138/92; PULSE 98
[2020-07-10 15:20] VITALS: BP 126/92; PULSE 102
[2020-07-10 15:50] VITALS: BP 127/86; PULSE 103
[2020-07-10 16:20] VITALS: BP 121/82; PULSE 101; TEMP 97.6
== END 2020-07-10 17:09 | disposition home or self-care (01) ==
LOC: EUO 12:44
PROVIDERS: Internal Medicine Gastroenterology
DX: K50.00 Crohn's disease of small intestine without complications (principal); Z79.899 Other long term (current) drug therapy
CPT/HCPCS: J1200; J7050; Q5103

== ENCOUNTER 2020-09-04 12:51 | Outpatient (CLI) | payer OTHER ==
[~2020-09-04] VITALS: Ht 172.7 cm; Wt 207.2 kg
[2020-09-04] VITALS (9 sets, daily range): BP systolic 122–159; BP diastolic 69–97; PULSE 95–110; TEMP 97.8
[2020-09-04 13:34] LABS: HEMATOCRIT 39.7 % (37.0-47.0); MEAN CELL VOLUME 89 fl (80.0-100.0); MEAN CORPUSCULAR HEMOGLOBIN 29 pg (27.0-31.0); MEAN CORPUSCULAR HGB CONC 33 g/dl (33.0-37.0); MEAN PLATELET VOLUME 9.3 fl (7.4-10.4); PLATELET COUNT 370 K/mm3 (130-400); RED BLOOD COUNT 4.47 M/mm3 (4.10-5.30); REDCELL DISTRIBUTION WIDTH-CV 13.6 % (11.5-14.5)
== END 2020-09-04 17:07 | disposition home or self-care (01) ==
LOC: EUO 12:51
PROVIDERS: Internal Medicine Gastroenterology
DX: K50.00 Crohn's disease of small intestine without complications (principal); Z79.899 Other long term (current) drug therapy
CPT/HCPCS: J1200; J7050; Q5103

== ENCOUNTER 2020-10-30 14:02 | Outpatient (CLI) | payer OTHER ==
[2020-10-30 14:53] LABS: HEMOGLOBIN 13.1 g/dl (12.5-16.0); MEAN CELL VOLUME 87 fl (80.0-100.0); MEAN CORPUSCULAR HEMOGLOBIN 29 pg (27.0-31.0); MEAN CORPUSCULAR HGB CONC 34 g/dl (33.0-37.0); MEAN PLATELET VOLUME 9.5 fl (7.4-10.4); PLATELET COUNT 330 K/mm3 (130-400); RED BLOOD COUNT 4.46 M/mm3 (4.10-5.30); REDCELL DISTRIBUTION WIDTH-CV 13.6 % (11.5-14.5)
[2020-10-30 14:56] LABS: ALBUMIN 3.9 gm/dL (3.5-5.0); TOTAL PROTEIN 7.6 gm/dL (6.4-8.2)
[2020-10-30 15:05] LABS: BILIRUBIN UNCONJUGATED 0.4 mg/dL (0.0-1.1); BILIRUBIN,TOTAL 0.4 mg/dL (0.0-1.0)
[2020-10-30 16:20] VITALS: BP 138/92; PULSE 91; TEMP 98.3
[2020-10-30 16:25] VITALS: BP 132/88; PULSE 89
[2020-10-30 16:55] VITALS: BP 141/92; PULSE 92
[2020-10-30 17:25] VITALS: BP 133/99; PULSE 101
[2020-10-30 17:55] VITALS: PULSE 104
== END 2020-10-30 18:30 | disposition home or self-care (01) ==
LOC: EUO 14:02
PROVIDERS: Internal Medicine Gastroenterology
DX: K50.00 Crohn's disease of small intestine without complications (principal); Z79.899 Other long term (current) drug therapy
CPT/HCPCS: J1200; J7050; Q5103

== ENCOUNTER 2020-12-25 12:49 | Outpatient (CLI) | payer OTHER ==
[2020-12-25 13:10] LABS: HEMATOCRIT 41.4 % (37.0-47.0); HEMOGLOBIN 13.3 g/dl (12.5-16.0); MEAN CELL VOLUME 90 fl (80.0-100.0); MEAN CORPUSCULAR HEMOGLOBIN 29 pg (27.0-31.0); MEAN CORPUSCULAR HGB CONC 32 g/dl (33.0-37.0); MEAN PLATELET VOLUME 9.3 fl (7.4-10.4); PLATELET COUNT 342 K/mm3 (130-400); REDCELL DISTRIBUTION WIDTH-CV 13.6 % (11.5-14.5)
[2020-12-25 13:27] VITALS: BP 137/92; PULSE 82; TEMP 98.2
[2020-12-25 14:00] VITALS: BP 123/86; PULSE 96; TEMP 98.4
[2020-12-25 14:10] VITALS: BP 131/83; PULSE 101
[2020-12-25 14:40] VITALS: BP 124/84; PULSE 98
[2020-12-25 15:10] VITALS: BP 118/78; PULSE 101
[2020-12-25 15:40] VITALS: BP 114/83; PULSE 98
== END 2020-12-25 17:26 | disposition home or self-care (01) ==
LOC: EUO 12:49
PROVIDERS: Internal Medicine Gastroenterology
DX: K50.00 Crohn's disease of small intestine without complications (principal); Z79.899 Other long term (current) drug therapy
CPT/HCPCS: J1200; J7050; Q5103

== ENCOUNTER 2021-02-19 13:05 | Outpatient (CLI) | payer OTHER ==
[~2021-02-19] VITALS: Ht 172.7 cm; Wt 203.8 kg
[2021-02-19 13:36] LABS: HEMATOCRIT 37.8 % (37.0-47.0); HEMOGLOBIN 12.5 g/dl (12.5-16.0); MEAN CELL VOLUME 86 fl (80.0-100.0); MEAN CORPUSCULAR HEMOGLOBIN 29 pg (27.0-31.0); MEAN CORPUSCULAR HGB CONC 33 g/dl (33.0-37.0); MEAN PLATELET VOLUME 9.1 fl (7.4-10.4); PLATELET COUNT 301 K/mm3 (130-400); RED BLOOD COUNT 4.39 M/mm3 (4.10-5.30); REDCELL DISTRIBUTION WIDTH-CV 13.6 % (11.5-14.5)
[2021-02-19 13:56] LABS: ALBUMIN 3.7 gm/dL (3.5-5.0); TOTAL PROTEIN 7.6 gm/dL (6.4-8.2)
[2021-02-19 14:10] LABS: BILIRUBIN UNCONJUGATED 0.3 mg/dL (0.0-1.1); BILIRUBIN,DIRECT 0.1 mg/dL (0.0-0.4); BILIRUBIN,TOTAL 0.4 mg/dL (0.0-1.0)
[2021-02-19 15:00] VITALS: BP 129/78; PULSE 98
[2021-02-19 15:30] VITALS: BP 124/87; PULSE 96
[2021-02-19 15:55] VITALS: BP 140/88; PULSE 104; TEMP 98.4
[2021-02-19 16:30] VITALS: BP 128/87; PULSE 95; TEMP 98
[2021-02-19 17:00] VITALS: BP 132/82; PULSE 100; TEMP 97.5
== END 2021-02-19 17:04 | disposition home or self-care (01) ==
LOC: EUO 13:05
PROVIDERS: Internal Medicine Gastroenterology
DX: K50.00 Crohn's disease of small intestine without complications (principal)
CPT/HCPCS: J1200; J7050; Q5103

== ENCOUNTER 2021-04-17 12:37 | Outpatient (CLI) | payer OTHER ==
[2021-04-17 13:17] LABS: MEAN CELL VOLUME 87 fl (80.0-100.0); MEAN CORPUSCULAR HEMOGLOBIN 29 pg (27.0-31.0); MEAN CORPUSCULAR HGB CONC 33 g/dl (33.0-37.0); PLATELET COUNT 289 K/mm3 (130-400); RED BLOOD COUNT 4.21 M/mm3 (4.10-5.30); REDCELL DISTRIBUTION WIDTH-CV 14.3 % (11.5-14.5)
[2021-04-17 13:18] LABS: HEMATOCRIT 36.4 % (37.0-47.0)
[2021-04-17 13:31] LABS: ALBUMIN 3.7 gm/dL (3.5-5.0); BILIRUBIN UNCONJUGATED 0.2 mg/dL (0.0-1.1); BILIRUBIN,TOTAL 0.3 mg/dL (0.0-1.0); TOTAL PROTEIN 7.1 gm/dL (6.4-8.2)
[2021-04-17 14:25] VITALS: BP 133/89; PULSE 95; TEMP 98.2
[2021-04-17 15:04] VITALS: BP 131/91; PULSE 97
[2021-04-17 15:35] VITALS: BP 136/90; PULSE 94
[2021-04-17 16:04] VITALS: PULSE 97
[2021-04-17 16:36] VITALS: BP 140/89; PULSE 95; TEMP 98.2
== END 2021-04-17 19:09 | disposition home or self-care (01) ==
LOC: EUO 12:37
PROVIDERS: Internal Medicine Gastroenterology
DX: K50.00 Crohn's disease of small intestine without complications (principal)
CPT/HCPCS: J1200; J7050; Q5103

== ENCOUNTER 2021-06-12 13:58 | Outpatient (CLI) | payer OTHER ==
[~2021-06-12] VITALS: Ht 172.7 cm; Wt 203.8 kg
[2021-06-12] MEDS ORDERED: QUESTRAN4 GM/9 GM PO (14:24)
[2021-06-12 14:33] LABS: HEMATOCRIT 40.5 % (37.0-47.0); MEAN CELL VOLUME 88 fl (80.0-100.0); MEAN CORPUSCULAR HEMOGLOBIN 28 pg (27.0-31.0); MEAN CORPUSCULAR HGB CONC 32 g/dl (33.0-37.0); MEAN PLATELET VOLUME 9.2 fl (7.4-10.4); PLATELET COUNT 357 K/mm3 (130-400); RED BLOOD COUNT 4.59 M/mm3 (4.10-5.30); REDCELL DISTRIBUTION WIDTH-CV 14.1 % (11.5-14.5)
[2021-06-12 15:35] VITALS: BP 154/102; PULSE 108; TEMP 98.7
[2021-06-12 16:05] VITALS: BP 163/95; PULSE 107; TEMP 98.7
[2021-06-12 16:35] VITALS: BP 167/104; PULSE 106; TEMP 98.7
[2021-06-12 17:05] VITALS: BP 162/96; PULSE 108; TEMP 98.7
[2021-06-12 17:33] VITALS: BP 160/92; PULSE 102; TEMP 98.7
== END 2021-06-12 17:34 | disposition home or self-care (01) ==
LOC: EUO 13:58
PROVIDERS: Internal Medicine Gastroenterology
DX: K50.00 Crohn's disease of small intestine without complications (principal)
CPT/HCPCS: J1200; J7050; Q5103

== ENCOUNTER 2021-08-07 13:54 | Outpatient (CLI) | payer OTHER ==
[~2021-08-07] VITALS: Ht 172.7 cm; Wt 206.7 kg
[~2021-08-07 13:54] MED LIST changes: +QUESTRAN4 GM/9 GM PO
[2021-08-07 14:27] LABS: HEMATOCRIT 39.2 % (37.0-47.0); HEMOGLOBIN 12.6 g/dl (12.5-16.0); MEAN CELL VOLUME 87 fl (80.0-100.0); MEAN CORPUSCULAR HEMOGLOBIN 28 pg (27.0-31.0); MEAN CORPUSCULAR HGB CONC 32 g/dl (33.0-37.0); MEAN PLATELET VOLUME 9.4 fl (7.4-10.4); PLATELET COUNT 347 K/mm3 (130-400); RED BLOOD COUNT 4.53 M/mm3 (4.10-5.30)
[2021-08-07 14:42] LABS: ALBUMIN 3.2 gm/dL (3.5-5.0); BILIRUBIN,TOTAL 0.4 mg/dL (0.2-1.2); TOTAL PROTEIN 7.6 gm/dL (6.2-8.1)
[2021-08-07 14:54] VITALS: BP 150/96; PULSE 99; TEMP 98.4
[2021-08-07 15:30] VITALS: BP 137/87; PULSE 100
[2021-08-07 15:43] LABS: BILIRUBIN,DIRECT 0.2 mg/dL (0.0-0.5)
[2021-08-07 16:00] VITALS: BP 134/93; PULSE 103
[2021-08-07 16:30] VITALS: BP 142/88; PULSE 99
[2021-08-07 17:00] VITALS: BP 145/92; PULSE 97
[2021-08-07 17:27] VITALS: BP 137/80; PULSE 99
== END 2021-08-07 17:31 | disposition home or self-care (01) ==
LOC: EUO 13:54
PROVIDERS: Internal Medicine Gastroenterology
DX: K50.00 Crohn's disease of small intestine without complications (principal)
CPT/HCPCS: J1200; J7050; Q5103

== ENCOUNTER 2021-10-02 13:41 | Outpatient (CLI) | payer OTHER ==
[~2021-10-02] VITALS: Ht 172.7 cm; Wt 201.5 kg
[2021-10-02 14:21] LABS: BASO % 0.4 % (0.0-2.0); EOS % 0.4 % (0.0-4.0); GRAN # 2.9 K/mm3 (1.4-6.5); GRAN % 57.9 % (42.2-75.2); HEMATOCRIT 43.2 % (37.0-47.0); HEMOGLOBIN 14.4 g/dl (12.5-16.0); LYMPH # 1.8 K/mm3 (1.2-3.4); MEAN CELL VOLUME 83 fl (80.0-100.0); MEAN CORPUSCULAR HEMOGLOBIN 28 pg (27-31); MEAN CORPUSCULAR HGB CONC 33 g/dl (33.0-37.0); MEAN PLATELET VOLUME 9.3 fl (7.4-10.4); MONO # 0.3 K/mm3 (0.1-0.6); MONO % 6.1 % (1.7-9.3); PLATELET COUNT 287 K/mm3 (130-400); RED BLOOD COUNT 5.19 M/mm3 (4.10-5.30); REDCELL DISTRIBUTION WIDTH-CV 14.3 % (11.5-14.5)
[2021-10-02 15:20] VITALS: BP 133/95; PULSE 115; TEMP 98.8
[2021-10-02 15:50] VITALS: BP 136/109; PULSE 106
[2021-10-02 16:20] VITALS: BP 141/101; PULSE 111
[2021-10-02 16:50] VITALS: BP 142/106; PULSE 111
== END 2021-10-02 17:39 | disposition home or self-care (01) ==
LOC: EUO 13:41
PROVIDERS: Internal Medicine Gastroenterology
DX: K50.00 Crohn's disease of small intestine without complications (principal)
CPT/HCPCS: J1200; J7050; Q5103

== ENCOUNTER 2021-11-27 14:00 | Outpatient (CLI) | payer OTHER ==
[~2021-11-27] VITALS: Ht 172.7 cm; Wt 204.8 kg
[2021-11-27 14:33] LABS: HEMATOCRIT 40.2 % (37.0-47.0); HEMOGLOBIN 13.3 g/dl (12.5-16.0); MEAN CELL VOLUME 85 fl (80.0-100.0); MEAN CORPUSCULAR HEMOGLOBIN 28 pg (27-31); MEAN CORPUSCULAR HGB CONC 33 g/dl (33.0-37.0); MEAN PLATELET VOLUME 9.1 fl (7.4-10.4); PLATELET COUNT 365 K/mm3 (130-400); RED BLOOD COUNT 4.73 M/mm3 (4.10-5.30); REDCELL DISTRIBUTION WIDTH-CV 13.9 % (11.5-14.5)
[2021-11-27 14:55] LABS: ALBUMIN 3.5 gm/dL (3.5-5.0); BILIRUBIN,DIRECT 0.2 mg/dL (0.0-0.5); BILIRUBIN,TOTAL 0.5 mg/dL (0.2-1.2); TOTAL PROTEIN 7.5 gm/dL (6.2-8.1)
[2021-11-27 15:03] VITALS: BP 140/100; PULSE 102; TEMP 98.1
[2021-11-27 15:25] VITALS: BP 137/83; PULSE 96
[2021-11-27 15:55] VITALS: BP 143/86; PULSE 102; TEMP 98.1
[2021-11-27 16:25] VITALS: BP 135/89; PULSE 98
[2021-11-27 16:55] VITALS: BP 134/85; PULSE 97
[2021-11-27 17:21] VITALS: BP 136/91; PULSE 97; TEMP 97.8
== END 2021-11-27 17:22 ==
LOC: EUO 14:00
PROVIDERS: Internal Medicine Gastroenterology
DX: K50.00 Crohn's disease of small intestine without complications (principal)
CPT/HCPCS: J1200; J7050; Q5103

== ENCOUNTER 2022-01-25 13:45 | Outpatient (CLI) | payer OTHER ==
[~2022-01-25] VITALS: Ht 172.7 cm; Wt 202.9 kg
[2022-01-25 14:30] LABS: HEMATOCRIT 40.8 % (37.0-47.0); HEMOGLOBIN 13.1 g/dl (12.5-16.0); MEAN CELL VOLUME 86 fl (80.0-100.0); MEAN CORPUSCULAR HEMOGLOBIN 28 pg (27-31); MEAN CORPUSCULAR HGB CONC 32 g/dl (33.0-37.0); MEAN PLATELET VOLUME 9.8 fl (7.4-10.4); PLATELET COUNT 307 K/mm3 (130-400); RED BLOOD COUNT 4.75 M/mm3 (4.10-5.30); REDCELL DISTRIBUTION WIDTH-CV 14.4 % (11.5-14.5)
[2022-01-25 15:15] LABS: ALBUMIN 3.5 gm/dL (3.5-5.0); BILIRUBIN,DIRECT 0.2 mg/dL (0.0-0.5); BILIRUBIN,TOTAL 0.4 mg/dL (0.2-1.2); TOTAL PROTEIN 7.6 gm/dL (6.2-8.1)
[2022-01-25 15:42] VITALS: BP 141/106; PULSE 95; TEMP 98.4
[2022-01-25 16:12] VITALS: BP 141/97; PULSE 97
[2022-01-25 16:42] VITALS: BP 140/91; PULSE 94; TEMP 98.3
[2022-01-25 17:12] VITALS: BP 144/94; PULSE 95
--- NOTE | 2022-01-25 17:52 | NUR ---
Pt tolerated inflectra infusion without incident; prior to infusion vital signs were stable, labs were drawn and WNL, and premedication was given; see flowsheet for vital signs and infusion rate during drug administration; pt completed infusion at 1742; thereafter verbalized comfort in discharging home, next appointment already set; PIV discontinued; pt ambulated self out to POV.
== END 2022-01-25 17:50 | disposition home or self-care (01) ==
LOC: EUO 13:45
PROVIDERS: Internal Medicine Gastroenterology
DX: K50.00 Crohn's disease of small intestine without complications (principal)
CPT/HCPCS: J1200; J7050; Q5103

== ENCOUNTER 2022-03-22 13:33 | Outpatient (CLI) | payer OTHER ==
[~2022-03-22] VITALS: Ht 172.7 cm; Wt 201.8 kg
[2022-03-22 14:04] LABS: BASO % 0.5 % (0.0-2.0); EOS # 0.1 K/mm3 (0.0-0.7); EOS % 1.1 % (0.0-4.0); GRAN % 60.2 % (42.2-75.2); HEMATOCRIT 39.3 % (37.0-47.0); LYMPH # 2.1 K/mm3 (1.2-3.4); LYMPH % 31.8 % (20.0-51.0); MEAN CELL VOLUME 86 fl (80.0-100.0); MEAN CORPUSCULAR HEMOGLOBIN 29 pg (27-31); MEAN CORPUSCULAR HGB CONC 33 g/dl (33.0-37.0); MEAN PLATELET VOLUME 9.1 fl (7.4-10.4); MONO # 0.4 K/mm3 (0.1-0.6); MONO % 6.2 % (1.7-9.3); PLATELET COUNT 340 K/mm3 (130-400); RED BLOOD COUNT 4.55 M/mm3 (4.10-5.30); REDCELL DISTRIBUTION WIDTH-CV 14.2 % (11.5-14.5)
[2022-03-22 15:00] VITALS: BP 157/93; PULSE 94; TEMP 97.8
[2022-03-22 15:30] VITALS: BP 156/94; PULSE 97
[2022-03-22 16:00] VITALS: BP 157/92; PULSE 95
[2022-03-22 16:30] VITALS: BP 150/95; PULSE 98
[2022-03-22 17:00] VITALS: BP 137/85; PULSE 104
== END 2022-03-23 19:25 ==
LOC: EUO 13:33
PROVIDERS: Internal Medicine Gastroenterology
DX: K50.00 Crohn's disease of small intestine without complications (principal); Z79.899 Other long term (current) drug therapy
CPT/HCPCS: J1200; J1745; J7050; Q5103

== ENCOUNTER 2022-05-21 13:25 | Outpatient (CLI) | payer OTHER ==
[~2022-05-21] VITALS: Ht 172.7 cm; Wt 200.0 kg
[2022-05-21 13:57] LABS: BASO % 0.5 % (0.0-2.0); EOS # 0.1 K/mm3 (0.0-0.7); EOS % 0.9 % (0.0-4.0); GRAN % 62.3 % (42.2-75.2); HEMATOCRIT 41.7 % (37.0-47.0); LYMPH # 2.5 K/mm3 (1.2-3.4); LYMPH % 30.8 % (20.0-51.0); MEAN CELL VOLUME 85 fl (80.0-100.0); MEAN CORPUSCULAR HEMOGLOBIN 29 pg (27-31); MEAN CORPUSCULAR HGB CONC 34 g/dl (33.0-37.0); MEAN PLATELET VOLUME 9.3 fl (7.4-10.4); MONO # 0.4 K/mm3 (0.1-0.6); MONO % 5.1 % (1.7-9.3); PLATELET COUNT 390 K/mm3 (130-400); RED BLOOD COUNT 4.92 M/mm3 (4.10-5.30); REDCELL DISTRIBUTION WIDTH-CV 13.9 % (11.5-14.5)
[2022-05-21 14:13] LABS: ALBUMIN 3.4 gm/dL (3.5-5.0); BILIRUBIN,TOTAL 0.7 mg/dL (0.2-1.2); TOTAL PROTEIN 7.7 gm/dL (6.2-8.1)
[2022-05-21 14:45] VITALS: BP 141/87; PULSE 109; TEMP 98.2
[2022-05-21 14:53] LABS: BILIRUBIN,DIRECT 0.3 mg/dL (0.0-0.5)
[2022-05-21 15:00] VITALS: BP 141/96; PULSE 107
[2022-05-21 15:30] VITALS: BP 133/85; PULSE 105
[2022-05-21 16:00] VITALS: BP 139/103; PULSE 105
[2022-05-21 16:30] VITALS: BP 135/95; PULSE 104
[2022-05-21 17:00] VITALS: BP 143/105; PULSE 100
== END 2022-05-21 17:12 | disposition home or self-care (01) ==
LOC: EUO 13:25
PROVIDERS: Internal Medicine Gastroenterology
DX: K50.00 Crohn's disease of small intestine without complications (principal)
CPT/HCPCS: J1200; J7050; Q5103

== ENCOUNTER 2022-07-16 13:53 | Outpatient (CLI) | payer OTHER ==
[~2022-07-16] VITALS: Ht 172.7 cm; Wt 196.0 kg
[2022-07-16 14:23] LABS: BASO # 0.1 K/mm3 (0.0-0.2); BASO % 1.5 % (0.0-2.0); EOS # 0.1 K/mm3 (0.0-0.7); EOS % 3.5 % (0.0-4.0); GRAN # 1.4 K/mm3 (1.4-6.5); GRAN % 41.9 % (42.2-75.2); HEMATOCRIT 40.3 % (37.0-47.0); HEMOGLOBIN 13.8 g/dl (12.5-16.0); LYMPH # 1.5 K/mm3 (1.2-3.4); LYMPH % 44.3 % (20.0-51.0); MEAN CELL VOLUME 83 fl (80.0-100.0); MEAN CORPUSCULAR HEMOGLOBIN 28 pg (27-31); MEAN CORPUSCULAR HGB CONC 34 g/dl (33.0-37.0); MEAN PLATELET VOLUME 9.5 fl (7.4-10.4); MONO # 0.3 K/mm3 (0.1-0.6); MONO % 8.5 % (1.7-9.3); PLATELET COUNT 225 K/mm3 (130-400); RED BLOOD COUNT 4.87 M/mm3 (4.10-5.30); REDCELL DISTRIBUTION WIDTH-CV 13.9 % (11.5-14.5)
[2022-07-16 14:41] LABS: ALBUMIN 3.3 gm/dL (3.5-5.0); BILIRUBIN,TOTAL 0.7 mg/dL (0.2-1.2); TOTAL PROTEIN 7.5 gm/dL (6.2-8.1)
[2022-07-16 14:56] LABS: BILIRUBIN,DIRECT 0.3 mg/dL (0.0-0.5)
[2022-07-16 15:10] VITALS: BP 128/84; PULSE 103; TEMP 98.2
[2022-07-16 15:40] VITALS: BP 130/88; PULSE 102
[2022-07-16 16:10] VITALS: BP 137/88; PULSE 102; TEMP 98
[2022-07-16 16:40] VITALS: BP 140/90; PULSE 101
[2022-07-16 17:10] VITALS: BP 140/89; PULSE 100; TEMP 98.5
== END 2022-07-16 17:17 | disposition home or self-care (01) ==
LOC: EUO 13:53
PROVIDERS: Internal Medicine Gastroenterology
DX: Z51.81 Encounter for therapeutic drug level monitoring (principal)
CPT/HCPCS: J1200; J7050; Q5103

== ENCOUNTER 2022-11-05 13:35 | Outpatient (CLI) | payer BC ==
[~2022-11-05] VITALS: Ht 172.7 cm; Wt 199.0 kg
[2022-11-05 14:03] LABS: BASO % 0.6 % (0.0-2.0); EOS # 0.1 K/mm3 (0.0-0.7); EOS % 1.4 % (0.0-4.0); GRAN # 3.9 K/mm3 (1.4-6.5); GRAN % 62.4 % (42.2-75.2); HEMOGLOBIN 13.5 g/dl (12.5-16.0); LYMPH # 1.8 K/mm3 (1.2-3.4); LYMPH % 28.2 % (20.0-51.0); MEAN CELL VOLUME 84 fl (80.0-100.0); MEAN CORPUSCULAR HEMOGLOBIN 27 pg (27-31); MEAN CORPUSCULAR HGB CONC 32 g/dl (33.0-37.0); MEAN PLATELET VOLUME 9.2 fl (7.4-10.4); MONO # 0.5 K/mm3 (0.1-0.6); MONO % 7.2 % (1.7-9.3); PLATELET COUNT 341 K/mm3 (130-400); RED BLOOD COUNT 5.02 M/mm3 (4.10-5.30); REDCELL DISTRIBUTION WIDTH-CV 14.3 % (11.5-14.5)
[2022-11-05 15:04] VITALS: BP 130/88; PULSE 92; TEMP 98.9
[2022-11-05 15:35] VITALS: BP 114/79; PULSE 88
[2022-11-05 16:05] VITALS: BP 119/81; PULSE 88
[2022-11-05 16:35] VITALS: BP 113/78; PULSE 93
[2022-11-05 17:05] VITALS: PULSE 93; TEMP 98.8
== END 2022-11-05 18:48 | disposition home or self-care (01) ==
LOC: EUO 13:35
PROVIDERS: Internal Medicine Gastroenterology
DX: K50.00 Crohn's disease of small intestine without complications (principal)
CPT/HCPCS: J1200; J7050; Q5103

== ENCOUNTER 2024-07-16 07:33 | Day surgery (SDC) | payer BC ==
[~2024-07-16] VITALS: Ht 172.7 cm; Wt 197.9 kg
[~2024-07-16 07:33] MED LIST changes: +LR 1,000 ML IV SCH; +Ondansetron 4 MG/2 ML VIAL IV PRN
[2024-07-16] MEDS ORDERED: ZEPBOUND7.5 MG/0.5 SQ (08:16)
[2024-07-16] MEDS ORDERED: COLESTID 1GM1 G PO (08:17)
[2024-07-16] MEDS ORDERED: PRINIVIL10 MG PO (08:18)
[2024-07-16] MEDS ORDERED: OSCAL 500 TAB500 MG PO (08:20)
[2024-07-16] MEDS ORDERED: MULTIPLE VITAMI1 CAP PO (08:20)
[2024-07-16] MEDS ORDERED: VITAMIN B12 781 TAB PO (08:21)
[2024-07-16 08:22] VITALS: BP 123/97; PULSE 85; TEMP 97.3
[2024-07-16] MEDS ORDERED: Lidocaine PF 2% (20 MG/ML) 5 ML VIAL ONE (08:56)
[2024-07-16 09:25] VITALS: BP 133/89; PULSE 89
--- NOTE | 2024-07-16 09:37 | NUR ---
0925 PATIENT RETURNS TO [facility] [place] [facility] [place]IA CART. PT AWAKE AND ALERT. RESPIRATIONS UNLABORED. AMBULATED TO RECLINER CHAIR WITH 2:1 SBA. PT DENIES NAUSEA OR ABDOMINAL PAIN. HOOKED UP TO MONITOR AND VS OBTAINED. CALL LIGHT AT SIDE AND BROTHER MAGDIEL PRESENT. 0930 PATIENT TOLERATING WATER AND BRITTANY CRACKERS WITHOUT NAUSEA OR DIFFICULTY SWALLOWING. 0945 IN ROOM SPEAKING WITH PATIENT. 1000 D/C INSTRUCTIONS REVIEWED WITH PATIENT. PT VERBALIZED UNDERSTANDING AND A COPY OF INSTRUCTIONS PROVIDED IN D/C FOLDER. 1005 PATIENT DRESSES SELF. 1015 PATIENT DISCHARGED FROM UNIT VIA W/C TO A PERSONAL VEHICLE. PT LEFT HOSPITAL IN STABLE CONDITION.
[2024-07-16 09:40] VITALS: BP 120/86; PULSE 79
[2024-07-16 09:55] VITALS: BP 135/93; PULSE 78
== END 2024-07-16 10:15 | disposition home or self-care (01) ==
LOC: SDCO 07:33
DX: K50.00 Crohn's disease of small intestine without complications (principal); K64.0 First degree hemorrhoids; I10 Essential (primary) hypertension; G47.33 Obstructive sleep apnea (adult) (pediatric); Z79.899 Other long term (current) drug therapy
CPT/HCPCS: J2704; J7120